=== PATIENT | female | born 1980 ===

== ENCOUNTER 2022-02-05 16:03 | Emergency (ER) | payer OTHER, SELFPAY ==
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
[2022-02-05 16:15] VITALS: BP 124/78; PULSE 83; O2SAT 98
[2022-02-05 16:25] VITALS: BP 123/78; PULSE 75; RESP 18; TEMP 36.2; O2SAT 98; BMI 34.9
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
[2022-02-05] MEDS: Cyclobenzaprine HCl 10 MG TABLET PO (16:48)
[2022-02-05] MEDS: Acetaminophen 325 MG TABLET 975 MG PO (16:49)
== END 2022-02-05 18:30 | disposition home or self-care (01) ==
PROVIDERS: Emergency Provider Internal Medicine
DX: S39.012A Strain of muscle, fascia and tendon of lower back, initial encounter (principal); S86.912A Strain of unspecified muscle(s) and tendon(s) at lower leg level, left leg, initial encounter; V43.52XA Car driver injured in collision with other type car in traffic accident, initial encounter; Y93.89 Activity, other specified; Y92.414 Local residential or business street as the place of occurrence of the external cause; Y99.9 Unspecified external cause status
CPT/HCPCS: 72110; 73564; 99283

== ENCOUNTER 2022-04-16 07:42 | Outpatient (REF) | payer OTHER, SELFPAY ==
--- NOTE | ~2022-04-16 | XR_ITS ---
EXAMINATION: XR KNEE, LEFT, ONE VIEW CLINICAL INFORMATION: Pain. COMPARISON: Radiographs dated 02/05/2022. TECHNIQUE: A single axial view of the right knee is submitted. FINDINGS: Bones and soft tissues are normal. No fracture or dislocation is seen. Alignment is anatomic. Patellofemoral joint space is well maintained. No abnormal soft tissue calcification. XR/XR knee LT 1V IMPRESSION: Unremarkable axial view of the right knee.
== END 2022-04-16 07:43 | disposition home or self-care (01) ==
LOC: HO.HOSX 07:42
PROVIDERS: Visit Provider Physician Assistant
DX: M23.92 Unspecified internal derangement of left knee (principal)
CPT/HCPCS: 73560; 99202

== ENCOUNTER 2022-04-29 17:10 | Outpatient (REF) | payer OTHER, SELFPAY ==
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
== END 2022-04-29 17:11 | disposition home or self-care (01) ==
LOC: HO.MRI 17:10
PROVIDERS: Visit Provider Physician Assistant
DX: M23.92 Unspecified internal derangement of left knee (principal)
CPT/HCPCS: 73721

== ENCOUNTER → 2022-05-28 12:50 | Outpatient (BNVA) | payer OTHER, SELFPAY | PROVIDERS: Visit Provider Physician Assistant | DX: M23.92 Unspecified internal derangement of left knee (principal) | CPT/HCPCS: J1040 ==